=== PATIENT | female | born 1980 | race Hispanic/Latino ===

== ENCOUNTER 2018-06-02 19:38 | Emergency (ER) | payer OTHER ==
[2018-06-02 20:20] LABS: #Lymphocytes 1.2 thou/uL (1.20-3.40); #Monocytes 0.6 thou/uL (0.11-0.59); #Neutrophils 5.4 thou/uL (1.40-6.50); %Basophils 0.4 % (0.0-1.0); %Eosinophils 0.5 % (0.0-10.0); %Lymphocytes 16.7 % (21.0-51.0); %Monocytes 8.8 % (0.0-10.0); %Neutrophils 73.6 % (42.0-75.0); Hemoglobin 13.6 g/dL (12.0-16.0); Mean Corpuscular HGB CONC 34.5 g/dL (32.0-36.0); Mean Corpuscular Hemoglobin 31.1 pg (27.0-31.0); Mean Corpuscular Volume 90.1 fL (78.0-98.0); Mean Platelet Volume 8.3 fL (7.4-10.4); Platelet Count 201 thou/uL (130-400); RBC Distribution Width 11.8 % (11.5-14.5); Red Blood Cell (RBC) Count 4.36 mill/uL (4.20-5.40); White Blood Cell (WBC) Count 7.3 thou/uL (4.8-10.8)
[2018-06-02 20:42] LABS: ALT (SGPT) 34 U/L (8-55); AST (SGOT) 26 U/L (5-34); Albumin 4.3 g/dL (3.5-5.0); Alkaline Phosphatase 100 U/L (40-150); Anion Gap 12 mmol/L (10-20); BUN (Urea Nitrogen) 9 mg/dL (7.0-18.7); Bilirubin, Total 0.3 mg/dL (0.2-1.2); Calc. Creatinine Clearance 0 mL/min (70-130); Calcium 9.4 mg/dL (7.8-10.44); Carbon Dioxide 22 mmol/L (22-29); Chloride 107 mmol/L (98-107); Estimated GFR-MDRD Greater than 90; Glucose 117 mg/dL (70-105); Protein, Total 7.3 g/dL (6.0-8.3); Sodium 137 mmol/L (136-145)
== END 2018-06-02 21:19 | disposition home or self-care (01) ==
LOC: ERS 19:38
DX: B02.9 Zoster without complications (principal); M06.9 Rheumatoid arthritis, unspecified; Z79.899 Other long term (current) drug therapy
CPT/HCPCS: 36415; 80053; 83605; 85025; 99283

== ENCOUNTER 2019-10-06 09:44 | Outpatient (CLI) | payer BC ==
--- NOTE | 2019-10-06 11:43 | RAD ---
RIGHT FOOT THREE VIEWS: HISTORY: Metatarsalgia right foot, pain. FINDINGS/IMPRESSION: No fracture, dislocation or other significant acute osseous process. POS: [facility]
--- NOTE | 2019-10-06 11:44 | RAD ---
LEFT FOOT THREE VIEWS: HISTORY: Pain. Metatarsalgia. FINDINGS/IMPRESSION: No fracture, dislocation or other significant acute osseous process. POS: [facility]
== END 2019-10-06 09:45 | disposition home or self-care (01) ==
LOC: BICRAD 09:44
PROVIDERS: ATTEND Internal Medicine Rheumatology
DX: M77.41 Metatarsalgia, right foot (principal); M77.42 Metatarsalgia, left foot